=== PATIENT | male | born 1995 | race Caucasian/White ===

== ENCOUNTER 2019-07-14 11:46 | Emergency (ER) | payer MEDICAID ==
[~2019-07-14] VITALS: Ht 177.8 cm; Wt 81.6 kg
[2019-07-14 12:18] VITALS: BP_SYST 128
--- NOTE | 2019-07-14 12:22 | NUR ---
PATIENT RETURNED TO WAITING AREA PENDING ROOM ASSIGNMENT
--- NOTE | 2019-07-14 13:15 | NUR ---
Patient to ER bed 3 to gown for evaluation. Side rails up.
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
[2019-07-14 14:40] VITALS: BP_SYST 129
--- NOTE | 2019-07-14 14:40 | NUR ---
Patient given written and verbal discharge instructions and verbalizes understanding. ER MD discussed with patient the results and treatment provided. Patient in stable condition. ID arm band removed. No Rx of given. Patient educated on pain management and to follow up with PMD. Pain Scale 0/10. Opportunity for questions provided and answered. Medication side effect fact sheet provided.
[2019-07-17 07:25] LABS: CHLAMYDIA TRACHOMATIS NAA Negative (Negative); NEISSERIA GONORRHOEAE NAA Negative (Negative)
== END 2019-07-14 14:40 | disposition home or self-care (01) ==
LOC: SED 11:46
DX: B35.6 Tinea cruris (principal); R21 Rash and other nonspecific skin eruption; Z20.2 Contact with and (suspected) exposure to infections with a predominantly sexual mode of transmission; Z88.8 Allergy status to other drugs, medicaments and biological substances
CPT/HCPCS: 87491; 87591; 99283

== ENCOUNTER 2019-07-25 15:05 | Emergency (ER) | payer MEDICAID ==
[~2019-07-25] VITALS: Ht 162.6 cm; Wt 68.0 kg
[2019-07-25 15:17] VITALS: BP_SYST 134
[2019-07-25] MEDS ORDERED: NS 1000 ML IV.SOLN IV ONE (15:30)
[2019-07-25 17:50] VITALS: BP_SYST 132
== END 2019-07-25 17:50 | disposition home or self-care (01) ==
LOC: SED 15:05
DX: F15.10 Other stimulant abuse, uncomplicated (principal); F17.200 Nicotine dependence, unspecified, uncomplicated; Z88.6 Allergy status to analgesic agent
CPT/HCPCS: 71045; 93005; 99283; 99285

== ENCOUNTER 2019-07-26 06:02 | Emergency (ER) | payer MEDICAID ==
[~2019-07-26] VITALS: Ht 162.6 cm; Wt 68.0 kg
[2019-07-26 06:02] VITALS: BP_SYST 148
[2019-07-26 06:30] LABS: BARBITURATE, URINE NEGATIVE (NEG <=200); BENZODIAZEPINE, URINE NEGATIVE (NEG <=150); CANNABINOID, URINE POSITIVE (NEG <=50); COCAINE, URINE NEGATIVE (NEG <=150); METHAMPHETAMINES SCREEN,URINE POSITIVE (NEG <=500); OPIATE, URINE NEGATIVE (NEG <=100); PHENCYCLIDINE SCREEN,URINE NEGATIVE (NEG <=25); UR TRICYCLIC ANTIDEPRESSANTS NEGATIVE (NEG <=300); URINE AMPHETAMINE POSITIVE (NEG <=500); URINE METHADONE NEGATIVE (NEG <=200); URINE OXYCODONE SCREEN NEGATIVE (NEG <=100); URINE PROPOXYPHENE SCREEN NEGATIVE (NEG <=300)
[2019-07-26] MEDS ORDERED: LORazepam 1 MG TABLET PO ONE (06:30)
[2019-07-26 06:33] LABS: BASOPHILS # (AUTO) 0.1 K/uL (0.0-0.2); HEMOGLOBIN 16.5 g/dL (14.0-18.0); LYMPHOCYTES # (AUTO) 2.3 K/uL (1.0-5.5); LYMPHOCYTES % (AUTO) 25.6 % (20.5-51.5); MEAN CORPUSCULAR HEMOGLOBIN 33 pg (27-31); MEAN CORPUSCULAR HGB CONC 35 % (32-36); MEAN CORPUSCULAR VOLUME 95 fL (79.0-98.0); MONOCYTES # (AUTO) 0.5 K/uL (0.0-1.0); MONOCYTES % (AUTO) 6.1 % (1.7-9.3); NEUTROPHILS % (AUTO) 67.3 % (40.0-70.0); PLATELET COUNT (AUTO) 294 K/uL (130-430); RED BLOOD CELL COUNT(AUTO) 4.94 MIL/uL (4.2-6.2); RED CELL DISTRIBUTION WIDTH 14.2 % (9.0-15.0)
[2019-07-26 06:48] LABS: ANION GAP 10 (5-15); CALCIUM 8.5 mg/dL (8.4-11.0); CHLORIDE 102 mmol/L (98-107); CREATININE 1.07 mg/dL (0.55-1.30); GLUCOSE 102 mg/dL (70-99); POTASSIUM 3.5 mmol/L (3.5-5.1); SODIUM SERUM 140 mmol/L (136-145); UREA NITROGEN, BLOOD 15 mg/dL (8-21)
[2019-07-26 06:53] LABS: ALANINE AMINOTRANSFERASE 127 U/L (12-78); ALBUMIN 4.4 g/dL (3.4-4.8); ASPARTATE AMINOTRANSFERASE 54 U/L (10-37); TOTAL BILIRUBIN 0.8 mg/dL (0.0-1.0)
[2019-07-26 06:55] LABS: ALCOHOL, BLOOD < 3 mg/dL (<10); GFR AFRICAN AMERICAN 108 mL/min (>90)
[2019-07-26 06:56] LABS: ACETAMINOPHEN < 1 ug/mL (1-30)
[2019-07-26 07:14] VITALS: BP_SYST 148
== END 2019-07-26 07:14 | disposition home or self-care (01) ==
LOC: SED 06:02
DX: F41.9 Anxiety disorder, unspecified (principal); F15.90 Other stimulant use, unspecified, uncomplicated; Z88.6 Allergy status to analgesic agent
CPT/HCPCS: 36415; 80053; 80307; 85025; 99283; G0480; G0481; G0482

== ENCOUNTER 2020-12-16 21:35 | Emergency (ER) | payer OTHER ==
[~2020-12-16] VITALS: Ht 180.3 cm; Wt 81.6 kg
[2020-12-16 21:40] VITALS: BP_SYST 135
[2020-12-16] MEDS ORDERED: ASPIRIN 81 MG TAB.CHEW PO ONE (22:15)
[2020-12-16 22:36] VITALS: BP_SYST 135
== END 2020-12-16 22:36 | disposition left against medical advice (07) ==
LOC: SED 21:35
DX: R07.89 Other chest pain (principal); Z88.8 Allergy status to other drugs, medicaments and biological substances
CPT/HCPCS: 93005; 99283